=== PATIENT | female | born 1985 | race Two or more races ===

== ENCOUNTER 2021-02-08 14:59 | Emergency (ER) | payer SELFPAY ==
[~2021-02-08] VITALS: Ht 157.5 cm; Wt 68.0 kg
[2021-02-08 16:13] LABS: BASOPHILS % (AUTO) 0 % (0-1); EOSINOPHILS % (AUTO) 0 % (1-7); LYMPHOCYTES % (AUTO) 9 % (22-44); MEAN CORPUSCULAR HEMOGLOBIN 30.8 pg (27.0-34.8); MEAN CORPUSCULAR HGB CONC 34.1 g/dL (32.4-35.8); MEAN PLATELET VOLUME 8.9 fL (7.4-10.4); MONOCYTES % (AUTO) 6 % (2-9); NEUTROPHILS % (AUTO) 84 % (42-75); PLATELET COUNT 199 x10^3/uL (130-400); RED CELL DISTRIBUTION WIDTH 13.3 % (9.6-15.2)
[2021-02-08 16:17] LABS: ALBUMIN 3.6 g/dL (3.4-5.0); ANION GAP 6 mmol/L (5-15); CALCIUM 8.3 mg/dL (8.5-10.1); CHLORIDE 108 mmol/L (98-107)
[2021-02-08 16:24] LABS: ALANINE AMINOTRANSFERASE 21 U/L (12-78); ALKALINE PHOSPHATASE 78 U/L (45-117); CREATININE 0.82 mg/dL (0.55-1.02); TOTAL PROTEIN 7.5 g/dL (6.4-8.2)
--- NOTE | 2021-02-08 16:53 | NUR ---
TO ROOM FROM LOBBY. ASSUMED CARE OF PT AT THIS TIME.
[2021-02-08] MEDS ORDERED: KETOROLAC 30 MG/1 ML IVPush ONE (17:30)
[2021-02-08] MEDS ORDERED: SODIUM CHLORIDE 0.9% 1,000ML IVBOLUS ONE (17:30)
[2021-02-08] MEDS ORDERED: DIPHENHYDRAMINE 50 MG/ML, 1ML IVPush ONE (17:30)
[2021-02-08] MEDS ORDERED: SODIUM CHLORIDE FLUSH 10ML SYR IVF ONE (17:30)
[2021-02-08] MEDS ORDERED: METOCLOPRAMIDE 5 MG/ML, 2ML IVPush ONE (17:30)
[2021-02-08] MEDS ORDERED: METHOCARBAMOL 750 MG TABLET PO ONE (17:30)
[2021-02-08] MEDS ORDERED: DIPHENHYDRAMINE 50 MG/ML, 1ML ONE (17:32)
[2021-02-08] MEDS ORDERED: METHOCARBAMOL 750 MG TABLET ONE (17:32)
[2021-02-08] MEDS ORDERED: METOCLOPRAMIDE 5 MG/ML, 2ML ONE (17:33)
[2021-02-08] MEDS ORDERED: KETOROLAC 30 MG/1 ML ONE (17:33)
--- NOTE | 2021-02-08 18:00 | NUR ---
TASK RN NOTE: PT SITTING UP IN BED, NAD NOTED AT THIS TIME, PT RESTING WITH EYES CLOSED. RESPIRATIONS EVEN AND UNLABORED ON RA. COVID SWAB COMPLETED AT THIS TIME AND WALKED TO LAB.
[2021-02-08] MEDS ORDERED: SULFAMETH./TRIMETHOPRIM DS 800MG/160MG TABLET ONE (18:30)
[2021-02-08] MEDS ORDERED: BACITRACIN ZINC OINT 500U/GM, 0.9 GM ONE (18:30)
[2021-02-08 18:52] VITALS: BP 102/60
--- NOTE | 2021-02-08 18:52 | NUR ---
PT REPORTS SIGNIFICANT IMPROVEMENT IN PAIN. PT DRESSING SELF. PT AND PT'S SPOUSE VERBALIZED UNDERSTANDING TO DC INSTRUCTIONS. AMBULATORY TO CHECKOUT C STEADY GAIT. VSS.
== END 2021-02-08 19:06 | disposition home or self-care (01) ==
LOC: ED 15:10
DX: M54.2 Cervicalgia (principal); R51.9 Headache, unspecified; Z20.822 Contact with and (suspected) exposure to COVID-19
CPT/HCPCS: 36415; 71045; 80053; 84703; 85025; 93005; 96361; 96374; 96375; 99285; J1200; J1885; J2765; J7030; U0003; U0005